=== PATIENT | male | born 1990 | race Caucasian/White ===

== ENCOUNTER 2016-12-13 17:00 | Emergency (ER) | payer SELFPAY ==
[~2016-12-13] VITALS: Ht 170.2 cm; Wt 98.0 kg
[2016-12-13 19:51] VITALS: BP 135/84
== END 2016-12-13 19:51 | disposition home or self-care (01) ==
LOC: ED 17:00
DX: J03.90 Acute tonsillitis, unspecified (principal); J02.9 Acute pharyngitis, unspecified
CPT/HCPCS: J0561; J1100